=== PATIENT | male | born 1985 | race Two or more races ===

== ENCOUNTER 2020-12-02 10:07 | Emergency (ER) | payer OTHER ==
[~2020-12-02] VITALS: Ht 180.3 cm; Wt 65.3 kg
== END 2020-12-02 13:10 | disposition designated cancer center or children's hospital (05) ==
LOC: ER 10:07 → CPU-OBS 12:06 → ER 12:06
DX: R07.89 Other chest pain (principal); Z20.822 Contact with and (suspected) exposure to COVID-19
CPT/HCPCS: 93306; 93005; G0378; G0379

== ENCOUNTER 2022-05-10 14:08 | Emergency (ER) | payer OTHER ==
[~2022-05-10] VITALS: Ht 180.3 cm; Wt 68.0 kg
== END 2022-05-10 16:48 | disposition home or self-care (01) ==
LOC: ER 14:08
DX: A08.4 Viral intestinal infection, unspecified (principal)

== ENCOUNTER 2025-10-22 05:08 | Emergency (ER) | payer OTHER ==
[~2025-10-22] VITALS: Ht 180.3 cm; Wt 68.0 kg
[2025-10-22 05:33] VITALS: BP 129/85; O2SAT 100
[2025-10-22] MEDS ORDERED: TRAMADOL HCL 50 MG TABLET PO ONE (05:45)
[2025-10-22] MEDS ORDERED: NORFLEX100MG PO (06:19)
== END 2025-10-22 06:58 | disposition home or self-care (01) ==
LOC: ER 05:09
DX: M25.562 Pain in left knee (principal)